=== PATIENT | female | born 1990 | race Caucasian/White ===

== ENCOUNTER → 2019-01-29 | Outpatient (REF) | payer OTHER ==
[~2019-01-29] MED LIST: IBUP-1022 PO; IBUP80TA PO
[2019-01-29 16:58] LABS: HCG, SERUM QUALITATIVE NEGATIVE (NEGATIVE)
[2019-01-29 17:13] LABS: PLATELET COUNT, AUTOMATED 289 10^3/uL (150-450)
[2019-01-29 17:20] LABS: PROTHROMBIN TIME 12.9 SECONDS (11.8-14.0)
[2019-01-29 17:21] LABS: PARTIAL THROMBOPLASTIN TIME 27.9 SECONDS (25.0-38.4)
== END ==
LOC: M LABDRAW1 15:41
PROVIDERS: ATTEND Physician Assistant
DX: Z01.812 Encounter for preprocedural laboratory examination (principal); M47.817 Spondylosis without myelopathy or radiculopathy, lumbosacral region

== ENCOUNTER 2020-02-14 19:54 | Emergency (ER) | payer OTHER, SELFPAY ==
[~2020-02-14] VITALS: Ht 167.6 cm; Wt 86.4 kg
[2020-02-14] MEDS ORDERED: TIZA4CAP PO (20:04)
[2020-02-14] MEDS ORDERED: MELO15TA28 PO (20:04)
[2020-02-14] MEDS ORDERED: GABA800T4 PO (20:04)
[2020-02-14] MEDS ORDERED: CYCLOBENZAPRINE 10MG TABLET PO ONE (21:15)
[2020-02-14] MEDS ORDERED: LIDOCAINE 5% (LIDODERM) PATCH TD ONE (21:15)
[2020-02-14] MEDS ORDERED: ACETAMINOPHEN 500 MG TAB PO ONE (21:15)
[2020-02-14] MEDS ORDERED: MORPHINE 4 MG/ML 1ML VIAL/SYRINGE (J2270) IV ONE (23:15)
[2020-02-15] MEDS ORDERED: LIDO5DIS41 TOP (00:28)
[2020-02-15 00:40] VITALS: BP 129/74
[2020-02-15] MEDS ORDERED: **NOTE PATIENT COMMENT** MISC XX ONE (09:30)
== END 2020-02-15 00:51 | disposition home or self-care (01) ==
LOC: M ED 19:54
DX: G89.29 Other chronic pain (principal); M54.5 Low back pain; Z79.899 Other long term (current) drug therapy; F17.210 Nicotine dependence, cigarettes, uncomplicated; F12.20 Cannabis dependence, uncomplicated
CPT/HCPCS: 80047; 84702; 96374; 99284; J2270

== ENCOUNTER → 2020-06-10 | Outpatient (REF) | payer OTHER ==
[~2020-06-10] MED LIST changes: +GABA800T4 PO; +LIDO5DIS41 TOP; +MELO15TA28 PO; +TIZA4CAP PO
[2020-06-10 14:01] LABS: HEMATOCRIT 41.1 % (36.0-47.0); HEMOGLOBIN 13.5 g/dl (12.0-15.5); MEAN CORPUSCULAR HEMOGLOBIN 29.5 pg (27.0-33.0); MEAN CORPUSCULAR HGB CONC 32.8 g/dl (32.0-36.5); MEAN CORPUSCULAR VOLUME 89.9 fl (80.0-96.0); PLATELET COUNT, AUTOMATED 280 10^3/uL (150-450); RED BLOOD COUNT 4.57 10^6/uL (4.00-5.40)
[2020-06-10 15:18] LABS: HEPATITIS C VIRUS ABY INDEX < 0.0 INDEX (<0.8); HIV 1&2 SCREEN CENTAUR NEGATIVE (NEGATIVE)
== END ==
LOC: M PLALAB 11:05
PROVIDERS: ATTEND Obstetrics & Gynecology
DX: Z34.01 Encounter for supervision of normal first pregnancy, first trimester (principal); Z36.89 Encounter for other specified antenatal screening
CPT/HCPCS: 36415; 85027; 86762; 86780; 86803; 86850; 86900; 86901; 87086; 87340; 87389; 87490; 87590; G0463

== ENCOUNTER → 2020-08-18 | Outpatient (CLI) | payer OTHER ==
--- NOTE | 2020-08-18 12:00 | REP ---
INDICATION: ANATOMY. COMPARISON: None. TECHNIQUE: Transabdominal obstetric sonography. FINDINGS: Scanning through the gravid uterus demonstrates a viable single intrauterine gestation in cephalic lie. motion is observed and heart rate is recorded at 139 beats per minute. A anterior placenta is seen, grade 0, without evidence of placenta previa. Closed cervical length is measured at 3.0 cm transabdominally. No extrauterine abnormality is observed. Amniotic fluid is subjectively normal. No anomaly is seen. The following anatomic structures are identified and felt to be sonographically unremarkable: cranium, choroid plexus, cavum, cerebellum and posterior fossa, face and profile, lungs, four-chamber heart with left and right ventricular outflow tract views, diaphragm, left-sided stomach, abdominal wall cord insertion, three-vessel umbilical cord, kidneys and bladder, spine, and upper and lower extremities. Biometry chart: BPD 4.9 cm, 20 weeks 5 days Head circumference 18.2 cm, 20 weeks 4 days Abdominal circumference 15.0 cm, 20 weeks 2 days Femur length 3.1 cm, 19 weeks 5 days Humeral length 3.0 cm, 19 weeks 6 days HC AC ratio normal 1.22 Cephalic index normal 0.74 Estimated weight 331 g, 0 lb 11 oz, 50th percentile for 20 weeks 0 days. IMPRESSION: Viable single intrauterine gestation at 20 weeks 2 days by today's composite sonographic criteria. NAGI by today's sonography January 03, 2021. No complication identified. Expected gestational age estimate based on provided NAGI of 05 January 2021 is 20 weeks 0 days. <Electronically signed by Antonio Nicholson > 08/18/20 [id number]
== END ==
LOC: M WHC 10:19
PROVIDERS: ATTEND Obstetrics & Gynecology
DX: Z36.89 Encounter for other specified antenatal screening (principal); Z3A.20 20 weeks gestation of pregnancy
CPT/HCPCS: 76811; 87490; 87590; G0463

== ENCOUNTER → 2020-08-18 | Outpatient (REF) | payer OTHER | LOC: M SFHCWAGY 12:49 | PROVIDERS: ATTEND Obstetrics & Gynecology | DX: Z34.92 Encounter for supervision of normal pregnancy, unspecified, second trimester (principal) ==